=== PATIENT | male | born 1955 | race Caucasian/White ===

== ENCOUNTER 2022-12-18 09:37 | Outpatient (CLI) | payer MEDICARE, SELFPAY | END 2022-12-18 09:38 | disposition home or self-care (01) | PROVIDERS: PCP Nurse Practitioner Family; Visit Provider Nurse Practitioner Family | DX: I10 Essential (primary) hypertension (principal); R73.03 Prediabetes; R53.83 Other fatigue; Z13.6 Encounter for screening for cardiovascular disorders | CPT/HCPCS: 80053; 80061; 82043; 82570; 85025 ==

== ENCOUNTER 2023-01-14 12:44 | Outpatient (CLI) | payer MEDICARE, SELFPAY | END 2023-01-14 12:45 | disposition home or self-care (01) | LOC: RAD 12:45 | PROVIDERS: PCP Nurse Practitioner Family; Visit Provider Nurse Practitioner Family | DX: I77.819 Aortic ectasia, unspecified site (principal); I51.7 Cardiomegaly | CPT/HCPCS: 93306 ==

== ENCOUNTER 2023-02-07 11:53 | Outpatient (CLI) | payer MEDICARE, SELFPAY | END 2023-02-07 11:54 | disposition home or self-care (01) | PROVIDERS: PCP Nurse Practitioner Family; Visit Provider Nurse Practitioner Family | DX: I10 Essential (primary) hypertension (principal); R53.83 Other fatigue; E66.01 Morbid (severe) obesity due to excess calories; R73.03 Prediabetes; R06.09 Other forms of dyspnea; Z13.0 Encounter for screening for diseases of the blood and blood-forming organs and certain disorders involving the immune mechanism | CPT/HCPCS: 83880; 85025 ==

== ENCOUNTER 2023-03-01 11:27 | Outpatient (CLI) | payer MEDICARE, SELFPAY | END 2023-03-01 11:28 | disposition home or self-care (01) | LOC: RAD 11:28 | PROVIDERS: PCP Nurse Practitioner Family; Visit Provider Internal Medicine Cardiovascular Disease | DX: R00.1 Bradycardia, unspecified (principal); R53.83 Other fatigue; I10 Essential (primary) hypertension; E66.01 Morbid (severe) obesity due to excess calories; R73.03 Prediabetes | CPT/HCPCS: 84443; 93225; 93226 ==

== ENCOUNTER 2023-08-06 08:26 | Outpatient (CLI) | payer MEDICARE, SELFPAY | END 2023-08-06 08:27 | disposition home or self-care (01) | PROVIDERS: PCP Nurse Practitioner Family; Visit Provider Nurse Practitioner Family | DX: Z00.00 Encounter for general adult medical examination without abnormal findings (principal); E66.01 Morbid (severe) obesity due to excess calories; R73.03 Prediabetes; I10 Essential (primary) hypertension; R53.83 Other fatigue; R31.29 Other microscopic hematuria; I48.91 Unspecified atrial fibrillation; R06.09 Other forms of dyspnea; Z12.5 Encounter for screening for malignant neoplasm of prostate; Z13.0 Encounter for screening for diseases of the blood and blood-forming organs and certain disorders involving the immune mechanism; Z13.6 Encounter for screening for cardiovascular disorders | CPT/HCPCS: 80053; 80061; 82043; 82570; 84443; 84484; 85025; G0103 ==

== ENCOUNTER 2024-09-22 09:05 | Outpatient (CLI) | payer MEDICARE, SELFPAY | END 2024-09-22 09:06 | disposition home or self-care (01) | PROVIDERS: PCP Nurse Practitioner Family; Visit Provider Nurse Practitioner Family | DX: I10 Essential (primary) hypertension (principal); R53.83 Other fatigue; R73.03 Prediabetes; R07.89 Other chest pain; K76.89 Other specified diseases of liver; Z79.899 Other long term (current) drug therapy; Z12.5 Encounter for screening for malignant neoplasm of prostate | CPT/HCPCS: 80053; 80061; 82043; 82570; 82607; 84443; 84484; 85025; G0103 ==

== ENCOUNTER 2024-09-29 09:03 | Outpatient (CLI) | payer MEDICARE, SELFPAY ==
--- NOTE | 2024-09-29 09:15 | CRLHL7_ITS ---
For Patients: As a result of the Century Cures Act, medical imaging exams and procedure reports are released immediately into your electronic medical record. You may view this report before your referring provider. If you have questions, please contact your health care provider. INDICATION: Elevated liver enzymes COMPARISON: none TECHNIQUE: Real time carter scale imaging and color Doppler analysis was performed of the right upper quadrant. FINDINGS: Liver echotexture is diffusely coarsened and increased. Liver measures 24.9 cm. There is a normal appearance of the hepatic IVC and proximal abdominal aorta. There is no evidence of ascites. The gallbladder is of normal size and there is no evidence of intraluminal stones or sludge. The gallbladder wall measures 3 mm in thickness. The common bile duct is of normal size and measures 4 mm in diameter at the level of the dixie hepatis. The pancreas is not well visualized. There is no evidence of a stone or hydronephrosis within the right kidney. The right kidney measures 12.8 cm in length. IMPRESSION: Hepatomegaly with diffuse hepatic steatosis. Dictated by Chiki Felipe MD @ 09/29/2024 1:13:44 PM (Electronically Signed)
== END 2024-09-29 09:04 | disposition home or self-care (01) ==
LOC: US 09:04
PROVIDERS: PCP Nurse Practitioner Family; Visit Provider Nurse Practitioner Family
DX: R74.8 Abnormal levels of other serum enzymes (principal); K76.0 Fatty (change of) liver, not elsewhere classified
CPT/HCPCS: 76705